=== PATIENT | female | born 1965 | race Caucasian/White ===

== ENCOUNTER 2017-12-13 08:29 | Emergency (ER) | payer SELFPAY ==
[~2017-12-13] VITALS: Ht 170.2 cm; Wt 113.6 kg
[2017-12-13] MEDS ORDERED: OMEP10 PO (08:37)
[2017-12-13 09:33] LABS: EOSINOPHILS % (AUTO) 2.1 % (1.0-6.0); HEMATOCRIT 40.5 % (36-46); HEMOGLOBIN 13.7 g/dL (12.0-16.0); LYMPHOCYTES # (AUTO) 1.4 K/uL (1.0-4.8); LYMPHOCYTES % (AUTO) 20.5 % (22.0-44.0); MEAN CORPUSCULAR HEMOGLOBIN 29.9 pg (26.0-34.0); MEAN CORPUSCULAR HGB CONC 33.8 G/dL (31.0-37.0); MEAN CORPUSCULAR VOLUME 89 fL (80-100); MONOCYTES # (AUTO) 0.5 K/uL (0.1-1.0); NEUTROPHILS # (AUTO) 4.8 K/uL (1.8-7.7); NEUTROPHILS % (AUTO) 69.4 % (40.0-70.0); PLATELET COUNT (AUTO) 272 K/uL (150-450); RED BLOOD CELL COUNT(AUTO) 4.57 MIL/uL (4.00-5.20); RED CELL DISTRIBUTION WIDTH 13.5 % (11.5-14.5)
[2017-12-13 09:39] LABS: ANION GAP 3 mmol/L (8-16); CALCIUM, TOTAL 9.4 mg/dL (8.8-10.5); CARBON DIOXIDE 30 mmol/L (22-29); CHLORIDE 104 mmol/L (98-107); GLOMERULAR FILTR. RATE CALC > 60 mL/min (>60); GLUCOSE,RANDOM 99 mg/dL (70-110); POTASSIUM 4.2 mmol/L (3.5-5.1); SODIUM SERUM 137 mmol/L (136-145); UREA NITROGEN, BLOOD 15 mg/dL (7-18)
[2017-12-13 09:46] LABS: ALANINE AMINOTRANSFERASE 24 U/L (12-78); ALBUMIN 3.6 g/dL (3.4-5.0); ALKALINE PHOSPHATASE 114 U/L (46-116); ASPARTATE AMINOTRANSFERASE 21 U/L (15-37); BILIRUBIN,TOTAL 0.8 mg/dL (0.1-1.0); LIPASE 91 U/L (73-393); TOTAL PROTEIN, SERUM 7.9 g/dL (6.4-8.2)
[2017-12-13] MEDS ORDERED: PANTOPRAZOLE SODIUM 40 MG/VIAL IVP ONE (10:45)
[2017-12-13] MEDS ORDERED: ONDANSETRON HCL 4 MG/2 ML VIAL IVP ONE (10:45)
[2017-12-13] MEDS ORDERED: MORPHINE SULFATE 4 MG/ML SYRINGE IVP ONE (10:45)
[2017-12-13] MEDS ORDERED: SODIUM CHLORIDE 0.9% 1,000 ML IV ONE (10:45)
[2017-12-13] MEDS ORDERED: SODIUM CHLORIDE 0.9% 100 ML ONE (11:32)
[2017-12-13] MEDS ORDERED: IOVERSOL 350 MG/ML 150 ML VIAL ONE (11:32)
[2017-12-13 12:55] LABS: APPEARANCE,URINE CLEAR (CLEAR); BILIRUBIN,URINE NEGATIVE (NEGATIVE); GLUCOSE, URINE (UA) NEGATIVE (NEGATIVE); KETONES,URINE NEGATIVE (NEGATIVE); LEUKOCYTE ESTERASE ,URINE NEGATIVE (NEGATIVE); NITRATE,URINE NEGATIVE (NEGATIVE); OCCULT BLOOD,URINE TRACE (NEGATIVE); PH,URINE 7.5 (5.0-8.0); PROTEIN,URINE NEGATIVE (NEGATIVE); UROBILINOGEN,URINE 0.2 mg/dL (<=1.0)
[2017-12-13 13:02] LABS: BACTERIA,URINE None Seen /HPF (None Seen); SQUAMOUS EPITHELIAL CELL,UR Few /LPF (None Seen); WBC,URINE 0-2 /HPF (0-5)
[2017-12-13 13:55] VITALS: BP 141/87
== END 2017-12-13 13:59 | disposition home or self-care (01) ==
LOC: EMS 08:30
DX: K52.9 Noninfective gastroenteritis and colitis, unspecified (principal)
CPT/HCPCS: 36415; 74177; 80053; 81001; 82270; 83690; 85025; 96361; 96374; 96375; 99285; C9113; J2270; J2405; J7030; J7050; Q9967

== ENCOUNTER 2022-05-20 08:34 | Emergency (ER) | payer MEDICAID, OTHER ==
[~2022-05-20] VITALS: Ht 170.2 cm; Wt 86.4 kg
[~2022-05-20 08:34] MED LIST: OMEP10 PO
[2022-05-20] MEDS ORDERED: FLUT16SP NASAL (08:40)
[2022-05-20] MEDS ORDERED: BUTA-271 PO (08:40)
[2022-05-20] MEDS ORDERED: CETI-193 PO (08:40)
[2022-05-20] MEDS ORDERED: LIDOCAINE 5% TRANSDERMAL PATCH TD ONE (10:45)
[2022-05-20] MEDS ORDERED: KETOROLAC TROMETHAMINE 30 MG/ML VIAL IM ONE (10:45)
[2022-05-20] MEDS ORDERED: ACETAMINOPHEN 500 MG TABLET PO ONE (10:45)
[2022-05-20 11:09] LABS: APPEARANCE,URINE HAZY (CLEAR); BILIRUBIN,URINE NEGATIVE (NEGATIVE); GLUCOSE, URINE (UA) NEGATIVE (NEGATIVE); KETONES,URINE NEGATIVE (NEGATIVE); LEUKOCYTE ESTERASE ,URINE TRACE (NEGATIVE); NITRATE,URINE NEGATIVE (NEGATIVE); OCCULT BLOOD,URINE SMALL (NEGATIVE); PROTEIN,URINE NEGATIVE (NEGATIVE); SPECIFIC GRAVITIY, URINE 1.013 (1.003-1.030); UROBILINOGEN,URINE <=1.0 mg/dL (<=1.0)
[2022-05-20 11:24] LABS: BACTERIA,URINE None Seen /HPF (None Seen); RBC,URINE 0-2 /HPF (0-2); WBC,URINE None Seen /HPF (0-5)
[2022-05-20 11:25] LABS: SQUAMOUS EPITHELIAL CELL,UR Moderate /LPF (None Seen)
[2022-05-20] MEDS ORDERED: LIDO700A15 TP (11:33)
[2022-05-20] MEDS ORDERED: IBUP-1492 PO (11:33)
[2022-05-20 12:07] VITALS: BP 138/80
== END 2022-05-20 12:08 | disposition home or self-care (01) ==
LOC: EMS 08:38
DX: S39.012A Strain of muscle, fascia and tendon of lower back, initial encounter (principal); X58.XXXA Exposure to other specified factors, initial encounter; Y93.89 Activity, other specified; Y92.89 Other specified places as the place of occurrence of the external cause; Y99.8 Other external cause status
CPT/HCPCS: 99283; 81001; 84703; 96372; J1885

== ENCOUNTER 2023-06-27 09:00 | Emergency (ER) | payer OTHER ==
[~2023-06-27] VITALS: Ht 170.2 cm; Wt 113.6 kg
[~2023-06-27 09:00] MED LIST changes: +BUTA-271 PO; +CETI-193 PO; +FLUT16SP NASAL; +IBUP-1492 PO; +LIDO700A15 TP; -OMEP10 PO
[2023-06-27 09:07] VITALS: TEMP 98.3
[2023-06-27] MEDS: IBUPROFEN 600 MG TABLET PO ONE (09:37)
[2023-06-27] MEDS: ACETAMINOPHEN 500 MG TABLET PO ONE (09:37)
[2023-06-27] MEDS ORDERED: ACET-3385 PO (09:48)
[2023-06-27 10:25] VITALS: BP 128/78; PULSE 78; RESP 16
== END 2023-06-27 10:30 | disposition home or self-care (01) ==
LOC: EMS 09:00
DX: S83.92XA Sprain of unspecified site of left knee, initial encounter (principal); Z98.890 Other specified postprocedural states; X58.XXXA Exposure to other specified factors, initial encounter; Y93.89 Activity, other specified; Y92.89 Other specified places as the place of occurrence of the external cause; Y99.8 Other external cause status
CPT/HCPCS: 99283

== ENCOUNTER 2023-09-02 08:44 | Inpatient (IN) | payer OTHER ==
[~2023-09-02] VITALS: Ht 170.2 cm; Wt 127.1 kg
[~2023-09-02 08:44] MED LIST changes: +ACET-3385 PO
[2023-09-02] MEDS ORDERED: PANT40TA54 PO (08:50)
[2023-09-02] MEDS ORDERED: FREM225S SQ (08:50)
[2023-09-02] MEDS ORDERED: RIME75TA PO (08:50)
[2023-09-02] MEDS ORDERED: CETI10TA58 PO (08:50)
[2023-09-02 10:05] LABS: BASOPHILS % (AUTO) 0.6 % (0.0-2.0); EOSINOPHILS % (AUTO) 0.8 % (1.0-6.0); HEMATOCRIT 39.6 % (36-46); HEMOGLOBIN 13.1 g/dL (12.0-16.0); LYMPHOCYTES % (AUTO) 10.6 % (22.0-44.0); MEAN CORPUSCULAR VOLUME 91 fL (80-100); MONOCYTES % (AUTO) 10.5 % (2.0-9.0); NEUTROPHILS # (AUTO) 7.4 K/uL (1.8-7.7); NEUTROPHILS % (AUTO) 77.5 % (40.0-70.0); PLATELET COUNT (AUTO) 338 K/uL (150-450); RED BLOOD CELL COUNT(AUTO) 4.36 MIL/uL (4.00-5.20); WHITE BLOOD COUNT (AUTO) 9.5 K/uL (4.5-11.0)
[2023-09-02] MEDS: MAG HYDROX/ALUMINUM HYD/SIMETH ES 30 ML SUSPENSION UDCUP PO ONE (10:10)
[2023-09-02 10:15] LABS: ALANINE AMINOTRANSFERASE 23 U/L (12-78); ALBUMIN 3.2 g/dL (3.4-5.0); ALKALINE PHOSPHATASE 96 U/L (46-116); ANION GAP 14 mmol/L (8-16); ASPARTATE AMINOTRANSFERASE 19 U/L (15-37); BILIRUBIN,TOTAL 0.8 mg/dL (0.1-1.0); CARBON DIOXIDE 26 mmol/L (22-29); CHLORIDE 103 mmol/L (98-107); CREATININE 0.61 mg/dL (0.60-1.30); GLOMERULAR FILTR. RATE CALC > 60 mL/min (>60); GLUCOSE,RANDOM 104 mg/dL (70-110); SODIUM SERUM 143 mmol/L (136-145); TOTAL PROTEIN, SERUM 7.9 g/dL (6.4-8.2); UREA NITROGEN, BLOOD 15 mg/dL (7-18)
[2023-09-02 10:18] LABS: POTASSIUM 2.8 mmol/L (3.5-5.1)
[2023-09-02] MEDS: PANTOPRAZOLE SODIUM 40 MG/VIAL IVP ONE (10:50)
[2023-09-02] MEDS: ONDANSETRON HCL 4 MG/2 ML VIAL IVP ONE (10:50)
[2023-09-02] MEDS: POTASSIUM CHLORIDE 40 MEQ in SODIUM CHLORIDE 0.9% 1,000 ML IV ONE (10:50)
[2023-09-02 10:58] LABS: LIPASE 20 U/L (16-77)
[2023-09-02] MEDS ORDERED: BISACODYL 10 MG RECTAL RECTAL SUPPOSITORY PR PRN (14:15)
[2023-09-02] MEDS ORDERED: MAGNESIUM HYDROXIDE SUSPENSION 30 ML UDCUP PO PRN (14:15)
[2023-09-02] MEDS ORDERED: MAGNESIUM SULFATE 4 GM/WATER 100 ML IV PRN (14:15)
[2023-09-02] MEDS ORDERED: ZOLPIDEM TARTRATE 5 MG TABLET PO PRN (14:15)
[2023-09-02] MEDS ORDERED: POTASSIUM CHL 10 MEQ/WATER 50 ML IV PRN (14:15)
[2023-09-02] MEDS ORDERED: MAGNESIUM SULFATE 2 GM/WATER 50 ML IV PRN (14:15)
[2023-09-02] MEDS ORDERED: MORPHINE SULFATE 2 MG/ML SYRINGE IVP PRN (14:15)
[2023-09-02] MEDS ORDERED: ONDANSETRON HCL 4 MG/2 ML VIAL IVP PRN (14:15)
[2023-09-02] MEDS ORDERED: FLUT16H NASAL (14:32)
[2023-09-02] MEDS ORDERED: MELO-106 PO (14:32)
[2023-09-02] MEDS ORDERED: DICL100G60 TP (14:32)
[2023-09-02] MEDS ORDERED: IOHEXOL 350 MG/ML 100 ML VIAL ONE (14:37)
[2023-09-02] MEDS ORDERED: SODIUM CHLORIDE 0.9% 0 ML ONE (14:37)
[2023-09-02] MEDS: POTASSIUM CHL 20 MEQ/0.9% NS 1,000 ML IV ONE (15:20)
[2023-09-02] MEDS: HEPARIN SODIUM,PORCINE 5,000 UNITS/ML VIAL SQ SCH (15:21)
[2023-09-02 16:21] VITALS: BP 107/68; PULSE 85; RESP 20; TEMP 98.4
[2023-09-02] MEDS: MetroNIDAZOLE 500 MG TABLET PO SCH (16:43)
[2023-09-02] MEDS: MAGNESIUM OXIDE 400 MG TABLET PO PRN (16:43)
[2023-09-02] MEDS: DOCUSATE SODIUM 100 MG CAPSULE PO SCH (20:09)
[2023-09-02] MEDS: ACETAMINOPHEN 325 MG TABLET PO PRN (20:10)
[2023-09-02 20:36] VITALS: BP 115/63; PULSE 81; RESP 18; TEMP 98.3
[2023-09-03 00:56] VITALS: BP 110/60; PULSE 74; RESP 18; TEMP 98
[2023-09-03 04:36] VITALS: BP 114/71; PULSE 70; RESP 18; TEMP 98.1
[2023-09-03 06:43] LABS: BASOPHILS % (AUTO) 0.5 % (0.0-2.0); EOSINOPHILS % (AUTO) 3.6 % (1.0-6.0); HEMATOCRIT 37.7 % (36-46); HEMOGLOBIN 12.4 g/dL (12.0-16.0); LYMPHOCYTES # (AUTO) 1.8 K/uL (1.0-4.8); LYMPHOCYTES % (AUTO) 20.1 % (22.0-44.0); MEAN CORPUSCULAR HEMOGLOBIN 30.2 pg (26.0-34.0); MEAN CORPUSCULAR VOLUME 92 fL (80-100); MONOCYTES # (AUTO) 0.8 K/uL (0.1-1.0); MONOCYTES % (AUTO) 9.1 % (2.0-9.0); NEUTROPHILS % (AUTO) 66.7 % (40.0-70.0); PLATELET COUNT (AUTO) 281 K/uL (150-450); RED BLOOD CELL COUNT(AUTO) 4.11 MIL/uL (4.00-5.20); RED CELL DISTRIBUTION WIDTH 14.1 % (11.5-14.5)
[2023-09-03 06:50] LABS: CHLORIDE 106 mmol/L (98-107); SODIUM SERUM 145 mmol/L (136-145)
[2023-09-03 06:52] LABS: ANION GAP 9 mmol/L (8-16); CARBON DIOXIDE 30 mmol/L (22-29); CREATININE 0.56 mg/dL (0.60-1.30); GLOMERULAR FILTR. RATE CALC > 60 mL/min (>60); GLUCOSE,RANDOM 72 mg/dL (70-110); UREA NITROGEN, BLOOD 10 mg/dL (7-18)
[2023-09-03] MEDS: POTASSIUM CHLORIDE 20 MEQ ER TABLET PO PRN (07:14)
[2023-09-03 07:21] VITALS: BP 131/67; PULSE 78; RESP 18; TEMP 97.7
[2023-09-03] MEDS: PANTOPRAZOLE SODIUM 40 MG DR TABLET PO SCH (08:27)
[2023-09-03] MEDS: HYDROCODONE/ACETAMINOPHEN 5-325 MG TABLET PO PRN (08:37)
[2023-09-03 11:13] VITALS: BP 136/75; PULSE 73; RESP 18; TEMP 97.7
[2023-09-03] MEDS: SUMAtriptan SUCCINATE 25 MG TABLET PO PRN (15:30)
[2023-09-03 15:42] VITALS: BP 107/60; PULSE 70; RESP 16; TEMP 97.9
[2023-09-03 17:27] LABS: C.DIFF GDH ANTIGEN, Stool Negative (Negative); C.DIFF TOXINS A&B, Stool Negative (Negative)
[2023-09-03 20:07] VITALS: BP 129/67; PULSE 80; RESP 18; TEMP 98.6
[2023-09-04 00:04] VITALS: BP 134/77; PULSE 73; RESP 18; TEMP 98.3
[2023-09-04] MEDS ORDERED: MORPHINE SULFATE 2 MG/ML SYRINGE IVP PRN ×2 (02:45→03:00)
[2023-09-04 05:39] VITALS: BP 122/69; PULSE 82; RESP 17; TEMP 98.6
[2023-09-04 07:10] LABS: BASOPHILS % (AUTO) 0.9 % (0.0-2.0); EOSINOPHILS % (AUTO) 3.1 % (1.0-6.0); HEMATOCRIT 37.7 % (36-46); HEMOGLOBIN 12.4 g/dL (12.0-16.0); LYMPHOCYTES # (AUTO) 1.9 K/uL (1.0-4.8); LYMPHOCYTES % (AUTO) 21.1 % (22.0-44.0); MEAN CORPUSCULAR HGB CONC 32.9 G/dL (31.0-37.0); MEAN CORPUSCULAR VOLUME 91 fL (80-100); MONOCYTES # (AUTO) 0.7 K/uL (0.1-1.0); MONOCYTES % (AUTO) 8.4 % (2.0-9.0); NEUTROPHILS # (AUTO) 5.9 K/uL (1.8-7.7); NEUTROPHILS % (AUTO) 66.5 % (40.0-70.0); PLATELET COUNT (AUTO) 282 K/uL (150-450); RED BLOOD CELL COUNT(AUTO) 4.15 MIL/uL (4.00-5.20); RED CELL DISTRIBUTION WIDTH 13.8 % (11.5-14.5); WHITE BLOOD COUNT (AUTO) 8.9 K/uL (4.5-11.0)
[2023-09-04 07:20] LABS: ANION GAP 11 mmol/L (8-16); CARBON DIOXIDE 25 mmol/L (22-29); CHLORIDE 105 mmol/L (98-107); CREATININE 0.55 mg/dL (0.60-1.30); GLOMERULAR FILTR. RATE CALC > 60 mL/min (>60); GLUCOSE,RANDOM 77 mg/dL (70-110); SODIUM SERUM 141 mmol/L (136-145); UREA NITROGEN, BLOOD 7 mg/dL (7-18)
[2023-09-04 08:26] VITALS: BP 138/75; PULSE 77; RESP 18; TEMP 98.2
[2023-09-04 10:58] VITALS: BP 131/91; PULSE 76; RESP 19; TEMP 98.2
[2023-09-04] MEDS ORDERED: POTA-206 PO (11:42)
[2023-09-04] MEDS ORDERED: METR500 PO (11:42)
== END 2023-09-04 12:00 | disposition home or self-care (01) | DRG 392 ==
LOC: EMS 08:45 → EDBEDREQ 12:49 → EDH 14:34 → 5S 15:40
PROVIDERS: ADMIT Internal Medicine; ATTEND Internal Medicine
DX: K52.9 Noninfective gastroenteritis and colitis, unspecified (principal); E87.6 Hypokalemia; G43.909 Migraine, unspecified, not intractable, without status migrainosus; E83.42 Hypomagnesemia; Z79.899 Other long term (current) drug therapy; Z98.84 Bariatric surgery status; Z90.49 Acquired absence of other specified parts of digestive tract
CPT/HCPCS: 71045; 74176; 80048; 80076; 82040; 83690; 83735; 84132; 85025; 87045; 87206; 87324; 87338; 87449; 89055; 93005; 99285; C9113; J1644; J2270; J2405; J3480; J7030; J7050; Q9967; 36415-L1; 36415-TC

== ENCOUNTER 2024-06-23 19:56 | Emergency (ER) | payer OTHER ==
[~2024-06-23] VITALS: Ht 170.2 cm; Wt 118.2 kg
[~2024-06-23 19:56] MED LIST changes: -ACET-3385 PO; -BUTA-271 PO; -CETI-193 PO; +CETI10TA58 PO; +DICL100G60 TP; +FLUT16H NASAL; -FLUT16SP NASAL; +FREM225S SQ; -IBUP-1492 PO; -LIDO700A15 TP; +MELO-106 PO; +METR500 PO; +PANT40TA54 PO; +POTA-206 PO; +RIME75TA PO
[2024-06-23] MEDS: ACETAMINOPHEN 325 MG TABLET PO ONE (22:05)
[2024-06-23 23:03] VITALS: TEMP 97.8
[2024-06-24 00:11] LABS: BASOPHILS % (AUTO) 1.1 % (0.0-2.0); EOSINOPHILS % (AUTO) 2.7 % (1.0-6.0); HEMATOCRIT 41.8 % (36-46); HEMOGLOBIN 13.6 g/dL (12.0-16.0); LYMPHOCYTES # (AUTO) 1.8 K/uL (1.0-4.8); LYMPHOCYTES % (AUTO) 22.3 % (22.0-44.0); MEAN CORPUSCULAR HEMOGLOBIN 29.9 pg (26.0-34.0); MEAN CORPUSCULAR HGB CONC 32.5 G/dL (31.0-37.0); MEAN CORPUSCULAR VOLUME 92 fL (80-100); MONOCYTES # (AUTO) 0.5 K/uL (0.1-1.0); MONOCYTES % (AUTO) 6.9 % (2.0-9.0); NEUTROPHILS # (AUTO) 5.3 K/uL (1.8-7.7); PLATELET COUNT (AUTO) 335 K/uL (150-450); RED BLOOD CELL COUNT(AUTO) 4.56 MIL/uL (4.00-5.20); RED CELL DISTRIBUTION WIDTH 14.3 % (11.5-14.5); WHITE BLOOD COUNT (AUTO) 7.8 K/uL (4.5-11.0)
[2024-06-24] MEDS: VALPROATE SODIUM 500 MG in DEXTROSE 5%-WATER 50 ML IV ONE (00:16)
[2024-06-24 00:17] LABS: ANION GAP 6 mmol/L (8-16); CALCIUM, TOTAL 9.6 mg/dL (8.8-10.5); CARBON DIOXIDE 32 mmol/L (22-29); CHLORIDE 107 mmol/L (98-107); CREATININE 0.54 mg/dL (0.60-1.30); GLOMERULAR FILTR. RATE CALC > 60 mL/min (>60); GLUCOSE,RANDOM 108 mg/dL (70-110); POTASSIUM 4.5 mmol/L (3.5-5.1); SODIUM SERUM 145 mmol/L (136-145); UREA NITROGEN, BLOOD 14 mg/dL (7-18)
[2024-06-24] MEDS: SODIUM CHLORIDE 0.9% 2,000 ML IV ONE (00:17)
[2024-06-24] MEDS: KETOROLAC TROMETHAMINE 30 MG/ML VIAL IVP ONE (00:17)
[2024-06-24] MEDS: METOCLOPRAMIDE HCL 5 MG/ML 2 ML VIAL IVP ONE (00:17)
[2024-06-24] MEDS: MORPHINE SULFATE 4 MG/ML SYRINGE IVP ONE (00:18)
[2024-06-24] MEDS ORDERED: HYDR-4062 PO (02:55)
[2024-06-24 03:13] VITALS: BP 124/65; PULSE 74; RESP 16; O2SAT 100
== END 2024-06-24 03:20 | disposition home or self-care (01) ==
LOC: EMS 19:57
DX: G43.909 Migraine, unspecified, not intractable, without status migrainosus (principal); Z79.1 Long term (current) use of non-steroidal anti-inflammatories (NSAID); Z79.899 Other long term (current) drug therapy; Z90.49 Acquired absence of other specified parts of digestive tract
CPT/HCPCS: 99285; 80048; 85025; 36415; 96365; 96375; 70450; J1885; J2765; J2270; J3490; J7060; J7030